=== PATIENT | female | born 1940 | race Hispanic/Latino ===

== ENCOUNTER 2017-08-01 11:02 | Inpatient (IN) | payer MEDICARE, BC ==
[2017-08-01 12:29] LABS: BASO % 0.6 % (0.0-2.0); EOS % 0.4 % (0.0-4.0); HEMOGLOBIN 14.5 g/dL (11.0-16.0); LYMPH # 1.6 K/uL (1.0-4.3); LYMPH % 29.2 % (20.0-40.0); MEAN CELL VOLUME 80.2 fL (81.0-99.0); MEAN CORPUSCULAR HEMOGLOBIN 26.2 pg (27.0-31.0); MEAN CORPUSCULAR HGB CONC 32.7 g/dL (33.0-37.0); MEAN PLATELET VOLUME 8.7 fL (7.2-11.7); MONO # 0.6 K/uL (0.0-0.8); MONO % 11.6 % (0.0-10.0); NEUT # 3.1 K/uL (1.8-7.0); NEUT % 58.2 % (50.0-75.0); RBC 5.53 Mil/uL (3.80-5.20); RED CELL DISTRIBUTION WIDTH 18.9 % (11.5-14.5); WHITE BLOOD COUNT 5.4 K/uL (4.8-10.8)
[2017-08-01 12:33] LABS: SQUAMOUS EPITHIAL < 1 /hpf (0-5); URINE BILIRUBIN NEGATIVE (NEGATIVE); URINE BLOOD NEGATIVE (NEGATIVE); URINE CLARITY Clear (Clear); URINE COLOR Straw (YELLOW); URINE GLUCOSE (UA) NORMAL (Normal); URINE LEUKOCYTE ESTERASE NEG Leu/uL (Negative); URINE NITRATE NEGATIVE (NEGATIVE); URINE PROTEIN NEGATIVE (NEGATIVE); URINE UROBILINOGEN NORMAL mg/dL (0.2-1.0)
--- NOTE | 2017-08-01 12:38 | RAD ---
PROCEDURE: CHEST RADIOGRAPH, 1 VIEW HISTORY: chest pain COMPARISON: None available. FINDINGS: LUNGS: Left mid lung zone calcified pleural plaque and right hemidiaphragmatic calcified pleural plaque Smaller opacities in mid right lung zone probably relate to the same calcified pleural plaque pathology PLEURA: No pneumothorax or pleural fluid seen. Calcified pleural plaques CARDIOVASCULAR: Normal heart size. Midline sternotomy changes OSSEOUS STRUCTURES: Orthopedic fixation of prior inferred old comminuted fracture proximal right humerus VISUALIZED UPPER ABDOMEN: Normal. OTHER FINDINGS: None. IMPRESSION: Calcified pleural plaques -prior asbestosis exposure inferred Postop changes
[2017-08-01 12:50] LABS: ALB/GLOB RATIO 1.3 (1.0-2.1); ALT/SGPT 22 U/L (9-52); AST/SGOT 35 U/L (14-36); BLOOD UREA NITROGEN 8 mg/dL (7-17); CALCIUM 8.6 mg/dl (8.6-10.4); GFR AFRICAN-AMERICAN > 60; GFR NON-AFRICAN AMERICAN > 60
[2017-08-01 13:02] LABS: B-TYPE NATRIURETIC PEPTIDE 323 pg/mL (0-900)
--- NOTE | 2017-08-01 13:38 | C.PDOC ---
History Of Present Illness 76 y/o female, with hx of CAD, presents to the ER complaining of left-sided arm pain which radiated to the chest with associated SOB. She gets this intermittently since the patient had a triple bypass 1 year ago. Patient states that the pain is worse today. The pain is intermittent and radiates to the chest. Patient denies any associated dizziness, nausea, and vomiting. Patient has another complaint, urinary incontinence. Patient states that she tries to go to the bathroom and she can't make it on time. This has been occurring for the past few weeks. Patient denies any abdominal pain,flank pain, back pain, nausea, vomiting, diarrhea, fever, and chills. Time Seen by Provider: 08/01/17 11:57 Chief Complaint (Nursing): Chest Pain History Per: Patient History/Exam Limitations: no limitations Onset/Duration Of Symptoms: Days Current Symptoms Are (Timing): Still Present Severity: Moderate Past Medical History Reviewed: Historical Data, Nursing Documentation, Vital Signs Vital Signs: Last Vital Signs Temp 98.6 F 08/01/17 11:10 Pulse 96 H 08/01/17 14:32 Resp 19 08/01/17 14:32 BP 145/61 08/01/17 14:50 Pulse Ox 96 08/01/17 15:26 - Medical History PMH: Anemia, HTN Surgical History: CABG Family History: States: No Known Family Hx - Social History Hx Alcohol Use: No Hx Substance Use: No - Immunization History Hx Influenza Vaccination: No Hx Pneumococcal Vaccination: No Review Of Systems Except As Marked, All Systems Reviewed And Found Negative. Constitutional: Negative for: Fever, Chills Respiratory: Positive for: Shortness of Breath Gastrointestinal: Negative for: Nausea, Vomiting, Abdominal Pain, Diarrhea Genitourinary: Positive for: Incontinence Musculoskeletal: Positive for: Arm Pain (left arm) Neurological: Negative for: Weakness, Numbness Physical Exam - Physical Exam Appears: Non-toxic, No Acute Distress, Other (awake, alert, cooperative) Skin: Normal Color, Warm Head: Atraumatic, Normacephalic Eye(s): bilateral: Normal Inspection, PERRL Nose: Normal Oral Mucosa: Moist Neck: Supple Chest: Symmetrical, Other (mid-line scar on chest) Cardiovascular: Rhythm Regular Respiratory: Normal Breath Sounds, No Accessory Muscle Use, No Rales, No Rhonchi , No Wheezing Gastrointestinal/Abdominal: Normal Exam Back: Normal Inspection, No CVA Tenderness Extremity: Normal ROM Neurological/Psych: Oriented x3, Normal Speech, Normal Cognition, Normal Motor, Normal Sensation ED Course And Treatment - Laboratory Results Result Diagrams: 08/01/17 12:20 08/01/17 12:20 ECG Rhythm: Sinus Rhythm Interpretation Of ECG: no ST elevations/depressions, occasional PACS Rate From EC O2 Sat by Pulse Oximetry: 96 (RA) Pulse Ox Interpretation: Normal - Other Rad No standard instances X-Ray: Viewed By Me, Read By Radiologist Interpretation: PROCEDURE: CHEST RADIOGRAPH, 1 VIEW. HISTORY: chest pain. COMPARISON: None available. FINDINGS: LUNGS: Left mid lung zone calcified pleural plaque and right hemidiaphragmatic calcified pleural plaque. Smaller opacities in mid right lung zone probably relate to the same calcified pleural plaque pathology. PLEURA: No pneumothorax or pleural fluid seen. Calcified pleural plaques. CARDIOVASCULAR: Normal heart size. Midline sternotomy changes. OSSEOUS STRUCTURES: Orthopedic fixation of prior inferred old comminuted fracture proximal right humerus. VISUALIZED UPPER ABDOMEN: Normal. OTHER FINDINGS: None. IMPRESSION: Calcified pleural plaques -prior asbestosis exposure inferred. Postop changes Medical Decision Making Medical Decision Making: Plan: --CXR --EKG --Labs --Urinalysis Daughter presented to ED, very anxious and mildly agitated. States her mother has a valvular disorder and needs to f/u with cardiology but does not go. Patient r/o ACS, spoke to medicine fiberglass insulation installer, will put consult for Dr. Mosqueda, cardiology fiberglass insulation installer. Disposition Discussed With : Luanne Kiser Counseled Patient/Family Regarding: Studies Performed - Disposition Disposition Time: 14:30 Condition: GUARDED - Clinical Impression Clinical Impression: Unstable angina - Scribe Statement The provider has reviewed the documentation as recorded by the Scribe Kasie Freire Provider Attestation: All medical record entries made by the Scribe were at my direction and personally dictated by me. I have reviewed the chart and agree that the record accurately reflects my personal performance of the history, physical exam, medical decision making, and the department course for this patient. I have also personally directed, reviewed, and agree with the discharge instructions and disposition. Decision To Admit - Pt Status Changed To: Hospital Disposition Of: Inpatient - Admit Certification Admit to Inpatient:: After my assessment, the patient will require hospitalization for at least two midnights. This is because of the severity of symptoms shown, intensity of services needed, and/or the medical risk in this patient being treated as an outpatient. - InPatient: Physician Admission Certification: I certify that this patient requires 2 or more midnights of care for the following reason:: comp[licated chest pain - . Bed Request Type: Telemetry Admitting Physician: Luanne Kiser Patient Diagnosis: Unstable angina
[2017-08-01 23:13] LABS: CK-MB 1.52 ng/mL (0.0-3.38)
--- NOTE | 2017-08-01 23:25 | CP.PCM.CON ---
History of Present Illness - History of Present Illness History of Present Illness: 76 F with hx of CAD s/p CABG admitted for chest pain Trop x 1 negative Patient was told she has some valvular problem and concerned Will check ECHO Continue Trop monitoring 76 year old female with past medical history of CAD s/p triple bypass, LE DVT on Eliquis, anxiety presented for chest pain x 2 days. Patient states that pain began 2 days ago when she was bending forward. The pain returned the next day when she woke in the morning. Patient states she occasionally gets chest pain after she had her bypass surgery 3 years ago. Pain was located in substernal region and felt like a tightness. Denies radiation of pain. Denies having any N/V/D/C, abd pain, SOB, F/C, cough. Patient complains left LE swelling and pain occasionally after her bypass. PMHx: stated above Sx: cardiac triple bypass, LE vein removal Social: current tobacco use, denies ETOH or drug use Med: see MAR Allergies: penicillin Physical Examination - Constitutional Appears: Non-toxic, No Acute Distress - Head Exam Head Exam: ATRAUMATIC - ENT Exam ENT Exam: Mucous Membranes Moist - Respiratory Exam Respiratory Exam: Clear to Ausculation Bilateral. absent: Accessory Muscle Use , Rhonchi, Wheezes, Respiratory Distress - Cardiovascular Exam Cardiovascular Exam: REGULAR RHYTHM, +S1, +S2. absent: Gallop, Rubs, Murmur - GI/Abdominal Exam GI & Abdominal Exam: Soft, Normal Bowel Sounds. absent: Distended, Firm, Guarding, Rigid, Tenderness - Extremities Exam Extremities Exam: Pedal Edema. absent: Calf Tenderness - Neurological Exam Neurological Exam: Alert, Awake, Oriented x3 - Psychiatric Exam Psychiatric exam: Normal Affect, Normal Mood - Skin Skin Exam: Dry, Intact, Normal Color, Warm Past Patient History - Past Medical History & Family History Past Medical History?: Yes - Past Social History Smoking Status: Light Smoker < 10 Cigarettes Daily - CARDIAC Hx Cardiac Disorders: Yes Hx Angina: Yes Hx Hypertension: Yes - PULMONARY Hx Respiratory Disorders: No - NEUROLOGICAL Hx Neurological Disorder: Yes Hx Vertigo: Yes - HEENT Hx HEENT Problems: Yes Other/Comment: USES GLASSES for poor vision - RENAL Hx Chronic Kidney Disease: No - ENDOCRINE/METABOLIC Hx Endocrine Disorders: No - HEMATOLOGICAL/ONCOLOGICAL Hx Blood Disorders: Yes Hx Anemia: Yes - INTEGUMENTARY Hx Dermatological Problems: No - MUSCULOSKELETAL/RHEUMATOLOGICAL Hx Falls: Yes - GASTROINTESTINAL Hx Gastrointestinal Disorders: Yes Hx Gastroesophageal Reflux: Yes - GENITOURINARY/GYNECOLOGICAL Hx Genitourinary Disorders: Yes Hx Incontinence: Yes (urgency) - PSYCHIATRIC Hx Substance Use: No - SURGICAL HISTORY Hx Surgeries: Yes Hx Coronary Artery Bypass Graft: Yes Hx Orthopedic Surgery: Yes (rt shoulder) Other/Comment: hernia repair -abdomen - ANESTHESIA Hx Anesthesia: Yes Hx Anesthesia Reactions: No Meds Home Medications: Home Medication List Medication Instructions Recorded Confirmed Type Lisinopril [Zestril] 2.5 mg PO DAILY #30 tab 08/04/17 Rx Rosuvastatin Calcium 2.5 [Crestor] 2.5 mg PO HS #30 tab 08/04/17 Rx Allergies/Adverse Reactions: Allergies Allergy/AdvReac Type Severity Reaction Status Date / Time Penicillins Allergy Verified 08/01/17 11:11 - Medications Medications: Current Medications Apixaban (Eliquis) 5 mg PO BID [facility] Digoxin (Lanoxin) 0.125 mg PO DAILY [facility] Diltiazem HCl (Cardizem Cd) 180 mg PO DAILY [facility] Duloxetine HCl (Cymbalta) 60 mg PO DAILY [facility] Ferrous Sulfate (Feosol) 325 mg PO DAILY [facility] Isosorbide Mononitrate (Imdur Er) 30 mg PO DAILY [facility] Meclizine HCl (Antivert) 12.5 mg PO DAILY [facility] Mirtazapine (Remeron) 7.5 mg PO HS [facility] Last Admin: 08/01/17 22:54 Dose: 7.5 mg Mometasone Furoate (Asmanex Twisthaler 220 Mcg) 1 puff INH RBID [facility] Pantoprazole Sodium (Protonix Ec Tab) 40 mg PO DAILY [facility] Pneumococcal Polyvalent Vaccine (Pneumovax 23 Vaccine) 0.5 ml IM .ONCE ONE Stop: 08/03/17 10:01 Results - Vital Signs Recent Vital Signs: Last Vital Signs Temp 98.1 F 08/01/17 18:34 Pulse 81 08/01/17 18:34 Resp 20 08/01/17 18:34 BP 151/64 H 08/01/17 18:34 Pulse Ox 99 08/01/17 18:34 - Labs Result Diagrams: 08/04/17 06:23 08/04/17 06:23 Labs: Laboratory Results - last 24 hr 08/01/17 08/01/1708/01/18 12:20 12:20 12:20 WBC 5.4 RBC 5.53 H Hgb 14.5 Hct 44.4 MCV 80.2 L MCH 26.2 L MCHC 32.7 L RDW 18.9 H Plt Count 272 MPV 8.7 Neut % (Auto) 58.2 Lymph % (Auto) 29.2 [place] % (Auto) 11.6 H Eos % (Auto) 0.4 Baso % (Auto) 0.6 Neut # 3.1 Lymph # 1.6 [place] # 0.6 Eos # 0.0 Baso # 0.0 Sodium 129 L Potassium 4.0 Chloride 93 L Carbon Dioxide 30 Anion Gap 10 BUN 8 Creatinine 0.5 L Est GFR ( Amer) > 60 Est GFR (Non-Af Amer) > 60 Random Glucose 79 Calcium 8.6 Total Bilirubin 0.3 AST 35 ALT 22 Alkaline Phosphatase 144 H Total Creatine Kinase CK-MB (Mass) Troponin I < 0.0120 NT-Pro-B Natriuret Pep 323 Total Protein 7.2 Albumin 4.0 Globulin 3.2 Albumin/Globulin Ratio 1.3 Urine Color Straw Urine Clarity Clear Urine pH 7.0 Ur Specific [place] 1.004 Urine Protein Negative Urine Glucose (UA) Normal Urine Ketones Negative Urine Blood Negative Urine Nitrate Negative Urine Bilirubin Negative Urine Urobilinogen Normal Ur Leukocyte Esterase Neg Urine RBC (Auto) < 1 Ur Squamous Epith Cells < 1 Digoxin 08/01/17 08/01/17 12:36 22:46 WBC RBC Hgb Hct MCV MCH MCHC RDW Plt Count MPV Neut % (Auto) Lymph % (Auto) [place] % (Auto) Eos % (Auto) Baso % (Auto) Neut # Lymph # [place] # Eos # Baso # Sodium Potassium Chloride Carbon Dioxide Anion Gap BUN Creatinine Est GFR ( Amer) Est GFR (Non-Af Amer) Random Glucose Calcium Total Bilirubin AST ALT Alkaline Phosphatase Total Creatine Kinase 89 CK-MB (Mass) 1.52 Troponin I < 0.0120 NT-Pro-B Natriuret Pep Total Protein Albumin Globulin Albumin/Globulin Ratio Urine Color Urine Clarity Urine pH Ur Specific [place] Urine Protein Urine Glucose (UA) Urine Ketones Urine Blood Urine Nitrate Urine Bilirubin Urine Urobilinogen Ur Leukocyte Esterase Urine RBC (Auto) Ur Squamous Epith Cells Digoxin 1.2 Assessment & Plan - Assessment and Plan (Free Text) Assessment: Assessment and Plan - Assessment and Plan (Free Text) Assessment: 76 year old female with past medical history of CAD s/p CABG is admitted for chest pain rule out ACS Chest pain troponin x 3 were negative EKG showed NSR HR of 80 with occasional PAC. will repeat EKG Echo ordered Will consider starting Aspirin on pt Continue Digoxin, Cardizem, Indur Will check HgbA1c and lipid pain and TSH Pt will need to be started on ACEI and statin Lightheadedness Will check carotid US Continue home medication Antivert LE DVT Will check carotid US Continue home med Eliquis hyponatremia Will start NS 75 cc will check urine osmolarity and urine lytes Prophylaxis Pepcid Continue Eliquis. Stopped SCDs until DVT
[2017-08-02 08:07] LABS: CK-MB 1.26 ng/mL (0.0-3.38)
[2017-08-02] MEDS: diltiaZEM 180 mg/24 Hours CD Cap PO SCH (09:33)
[2017-08-02] MEDS: Pantoprazole 40 mg EC Tab PO SCH (09:33)
[2017-08-02] MEDS ORDERED: Digoxin 125 mcg (0.125 mg) Tab PO SCH (10:00)
[2017-08-02] MEDS ORDERED: Mometasone 220 mcg/puff-14 puff Inh INH SCH (10:00)
[2017-08-02 10:01] LABS: OSMOLALITY,URINE 303 mosm/kg (300-1000)
--- NOTE | 2017-08-02 11:06 | CP.PCM.PN ---
Subjective - Date & Time of Evaluation Date of Evaluation: 08/02/17 Time of Evaluation: 11:04 - Subjective Subjective: PGY2 progress note for Dr. Kiser 76 year old female with past medical history of CAD s/p triple bypass, LE DVT on Eliquis, anxiety presented for chest pain x 2 days. Patient states that pain began 2 days ago when she was bending forward. The pain returned the next day when she woke in the morning. Patient states she occasionally gets chest pain after she had her bypass surgery 3 years ago. Pain was located in substernal region and felt like a tightness. Denies radiation of pain. Denies having any N/V/D/C, abd pain, SOB, F/C, cough. Patient complains left LE swelling and pain occasionally after her bypass. PMHx: stated above Sx: cardiac triple bypass, LE vein removal Social: current tobacco use, denies ETOH or drug use Med: see MAR Allergies: penicillin Objective - Vital Signs/Intake and Output Vital Signs (last 24 hours): Temp Pulse Resp BP Pulse Ox 98.1 F 86 20 130/69 97 08/02/17 07:50 08/02/17 07:50 08/02/17 07:50 08/02/17 07:50 08/02/17 07:50 - Medications Medications: Current Medications Apixaban (Eliquis) 5 mg PO BID [facility] Last Admin: 08/02/17 09:33 Dose: 5 mg Digoxin (Lanoxin) 0.125 mg PO DAILY [facility] Last Admin: 08/02/17 09:34 Dose: 0.125 mg Diltiazem HCl (Cardizem Cd) 180 mg PO DAILY [facility] Last Admin: 08/02/17 09:33 Dose: 180 mg Duloxetine HCl (Cymbalta) 60 mg PO DAILY [facility] Last Admin: 08/02/17 09:32 Dose: 60 mg Ferrous Sulfate (Feosol) 325 mg PO DAILY [facility] Last Admin: 08/02/17 09:33 Dose: 325 mg Isosorbide Mononitrate (Imdur Er) 30 mg PO DAILY [facility] Last Admin: 08/02/17 09:33 Dose: 30 mg Meclizine HCl (Antivert) 12.5 mg PO DAILY [facility] Last Admin: 08/02/17 09:33 Dose: 12.5 mg Mirtazapine (Remeron) 7.5 mg PO HS [facility] Last Admin: 08/01/17 22:54 Dose: 7.5 mg Mometasone Furoate (Asmanex Twisthaler 220 Mcg) 1 puff INH RBID [facility] Pantoprazole Sodium (Protonix Ec Tab) 40 mg PO DAILY [facility] Last Admin: 08/02/17 09:33 Dose: 40 mg Pneumococcal Polyvalent Vaccine (Pneumovax 23 Vaccine) 0.5 ml IM .ONCE ONE Stop: 08/03/17 10:01 - Labs Labs: 08/01/17 12:20 08/01/17 12:20 - Constitutional Appears: Non-toxic, No Acute Distress - Head Exam Head Exam: ATRAUMATIC - ENT Exam ENT Exam: Mucous Membranes Moist - Respiratory Exam Respiratory Exam: Clear to Ausculation Bilateral. absent: Accessory Muscle Use , Rhonchi, Wheezes, Respiratory Distress - Cardiovascular Exam Cardiovascular Exam: REGULAR RHYTHM, +S1, +S2. absent: Gallop, Rubs, Murmur - GI/Abdominal Exam GI & Abdominal Exam: Soft, Normal Bowel Sounds. absent: Distended, Firm, Guarding, Rigid, Tenderness - Extremities Exam Extremities Exam: Pedal Edema. absent: Calf Tenderness - Neurological Exam Neurological Exam: Alert, Awake, Oriented x3 - Psychiatric Exam Psychiatric exam: Normal Affect, Normal Mood - Skin Skin Exam: Dry, Intact, Normal Color, Warm Assessment and Plan - Assessment and Plan (Free Text) Assessment: 76 year old female with past medical history of CAD s/p CABG is admitted for chest pain rule out ACS Chest pain troponin x 3 were negative EKG showed NSR HR of 80 with occasional PAC. will repeat EKG Echo ordered Will consider starting Aspirin on pt Continue Digoxin, Cardizem, Indur Will check HgbA1c and lipid pain and TSH Pt will need to be started on ACEI and statin Lightheadedness Will check carotid US Continue home medication Antivert LE DVT Will check carotid US Continue home med Eliquis hyponatremia Will start NS 75 cc will check urine osmolarity and urine lytes Prophylaxis Pepcid Continue Eliquis. Stopped SCDs until DVT All rec and management per Dr. Kiser
[2017-08-02 11:53] LABS: HEMOGLOBIN 12.7 g/dL (11.0-16.0); MEAN CELL VOLUME 79.8 fL (81.0-99.0); MEAN CORPUSCULAR HGB CONC 32.6 g/dL (33.0-37.0); MEAN PLATELET VOLUME 8.6 fL (7.2-11.7); RBC 4.88 Mil/uL (3.80-5.20); RED CELL DISTRIBUTION WIDTH 18.8 % (11.5-14.5); WHITE BLOOD COUNT 6.2 K/uL (4.8-10.8)
[2017-08-02 12:14] LABS: BLOOD UREA NITROGEN 13 mg/dL (7-17); CALCIUM 8.3 mg/dl (8.6-10.4); GFR AFRICAN-AMERICAN > 60; GFR NON-AFRICAN AMERICAN > 60
--- NOTE | 2017-08-02 12:24 | CP.PCM.PN ---
<Roge Turner - Last Filed: 08/02/17 12:21> Subjective - Date & Time of Evaluation Date of Evaluation: 08/02/17 Time of Evaluation: 11:00 - Subjective Subjective: PGY-[address] Mosqueda. No acute events noted overnight. Patient complained of left leg swelling and pain which is more frequent after her bypass 3 years ago. Today she did not complain of chest pain or palpitations, although she states she occasionally gets chest tightness after her bypass. She was seen walking without dyspnea. Objective - Vital Signs/Intake and Output Vital Signs (last 24 hours): Temp Pulse Resp BP Pulse Ox 98.1 F 86 20 130/69 97 08/02/17 07:50 08/02/17 07:50 08/02/17 07:50 08/02/17 07:50 08/02/17 07:50 - Medications Medications: Current Medications Alprazolam (Xanax) 0.5 mg PO ONCE PRN PRN Reason: Anxiety Last Admin: 08/02/17 12:16 Dose: 0.5 mg Apixaban (Eliquis) 5 mg PO BID [facility] Last Admin: 08/02/17 09:33 Dose: 5 mg Digoxin (Lanoxin) 0.125 mg PO DAILY [facility] Last Admin: 08/02/17 09:34 Dose: 0.125 mg Diltiazem HCl (Cardizem Cd) 180 mg PO DAILY [facility] Last Admin: 08/02/17 09:33 Dose: 180 mg Duloxetine HCl (Cymbalta) 60 mg PO DAILY [facility] Last Admin: 08/02/17 09:32 Dose: 60 mg Famotidine (Pepcid) 20 mg PO DAILY [facility] Last Admin: 08/02/17 12:15 Dose: 20 mg Ferrous Sulfate (Feosol) 325 mg PO DAILY [facility] Last Admin: 08/02/17 09:33 Dose: 325 mg Isosorbide Mononitrate (Imdur Er) 30 mg PO DAILY [facility] Last Admin: 08/02/17 09:33 Dose: 30 mg Meclizine HCl (Antivert) 12.5 mg PO DAILY [facility] Last Admin: 08/02/17 09:33 Dose: 12.5 mg Mirtazapine (Remeron) 7.5 mg PO HS [facility] Last Admin: 08/01/17 22:54 Dose: 7.5 mg Mometasone Furoate (Asmanex Twisthaler 220 Mcg) 1 puff INH RBID [facility] Pantoprazole Sodium (Protonix Ec Tab) 40 mg PO DAILY [facility] Last Admin: 08/02/17 09:33 Dose: 40 mg Pneumococcal Polyvalent Vaccine (Pneumovax 23 Vaccine) 0.5 ml IM .ONCE ONE Stop: 08/03/17 10:01 - Labs Labs: 08/02/17 11:41 08/02/17 11:41 - Additional Findings Additional findings: - Constitutional Appears: Non-toxic, No Acute Distress - Head Exam Head Exam: ATRAUMATIC - ENT Exam ENT Exam: Mucous Membranes Moist - Respiratory Exam Respiratory Exam: Clear to Ausculation Bilateral. absent: Accessory Muscle Use , Rhonchi, Wheezes, Respiratory Distress - Cardiovascular Exam Cardiovascular Exam: REGULAR RHYTHM, +S1, +S2. absent: Gallop, Rubs, Murmur - GI/Abdominal Exam GI & Abdominal Exam: Soft, Normal Bowel Sounds. absent: Distended, Firm, Guarding, Rigid, Tenderness - Extremities Exam Extremities Exam: Pedal Edema. absent: Calf Tenderness - Neurological Exam Neurological Exam: Alert, Awake, Oriented x3 - Psychiatric Exam Psychiatric exam: Normal Affect, Normal Mood - Skin Skin Exam: Dry, Intact, Normal Color, Warm Assessment and Plan (1) Chest pain Assessment & Plan: s/p triple bypass 2014 troponin x 3 were negative Pro-bnp NORMAL EKG on admission showed NSR HR of 80 with occasional PAC F/U ECHO report On telemetry monitoring Continue current medical management Status: Acute <PandaRenzo - Last Filed: 08/02/17 20:54> Subjective - Subjective Subjective: Patient seen and personally evaluated by me. 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 Will schedule for MIGUELITO for definitive diagnosis Objective - Vital Signs/Intake and Output Vital Signs (last 24 hours): Temp Pulse Resp BP Pulse Ox 98.9 F 68 20 139/60 100 08/02/17 15:45 08/02/17 19:55 08/02/17 15:45 08/02/17 15:45 08/02/17 15:45 - Medications Medications: Current Medications Albuterol Sulfate (Albuterol 0.083% Inhal [place] (2.5 Mg/3 Ml) Ud) 2.5 mg INH RQ8 [facility] Last Admin: 08/02/17 19:53 Dose: 2.5 mg Alprazolam (Xanax) 0.5 mg PO ONCE PRN PRN Reason: Anxiety Last Admin: 08/02/17 12:16 Dose: 0.5 mg Alprazolam (Xanax) 1 mg PO BID [facility] Last Admin: 08/02/17 19:11 Dose: 1 mg Apixaban (Eliquis) 5 mg PO BID [facility] Last Admin: 08/02/17 17:18 Dose: 5 mg Digoxin (Lanoxin) 0.125 mg PO DAILY [facility] Last Admin: 08/02/17 09:34 Dose: 0.125 mg Diltiazem HCl (Cardizem Cd) 180 mg PO DAILY [facility] Last Admin: 08/02/17 09:33 Dose: 180 mg Duloxetine HCl (Cymbalta) 60 mg PO DAILY [facility] Last Admin: 08/02/17 09:32 Dose: 60 mg Famotidine (Pepcid) 20 mg PO DAILY [facility] Last Admin: 08/02/17 12:15 Dose: 20 mg Ferrous Sulfate (Feosol) 325 mg PO DAILY [facility] Last Admin: 08/02/17 09:33 Dose: 325 mg Sodium Chloride (Sodium Chloride 0.9%) 1,000 mls @ 75 mls/hr IV .[id number] [facility] Last Admin: 08/02/17 14:57 Dose: 75 mls/hr Isosorbide Mononitrate (Imdur Er) 30 mg PO DAILY [facility] Last Admin: 08/02/17 09:33 Dose: 30 mg Meclizine HCl (Antivert) 12.5 mg PO DAILY [facility] Last Admin: 08/02/17 09:33 Dose: 12.5 mg Metoclopramide HCl (Reglan) 10 mg PO Q8H PRN PRN Reason: Nausea/Vomiting Mirtazapine (Remeron) 7.5 mg PO HS [facility] Last Admin: 08/01/17 22:54 Dose: 7.5 mg Mometasone Furoate (Asmanex Twisthaler 220 Mcg) 1 puff INH RBID [facility] Nicotine (Nicoderm Cq) 1 patch TD DAILY [facility] Last Admin: 08/02/17 19:11 Dose: 1 patch Pantoprazole Sodium (Protonix Ec Tab) 40 mg PO DAILY [facility] Last Admin: 08/02/17 09:33 Dose: 40 mg Pneumococcal Polyvalent Vaccine (Pneumovax 23 Vaccine) 0.5 ml IM .ONCE ONE Stop: 08/03/17 10:01 - Labs Labs: 08/02/17 11:41 08/02/17 11:41
[2017-08-02 13:17] LABS: HDL CHOLESTEROL 58 mg/dL (30-70)
[2017-08-02 13:28] LABS: LDL CHOLESTEROL 60 mg/dL (0-129)
--- NOTE | 2017-08-02 14:42 | VASCLAB ---
PROCEDURE: Lower Extremity Venous Duplex Exam. HISTORY: Left leg swelling, r/o dvt PRIORS: None. TECHNIQUE: Bilateral common femoral, femoral, popliteal and posterior tibial, peroneal and great saphenous veins were evaluated. Flow was assessed with color Doppler, compressibility, assessment of phasic flow and augmentation response. Report prepared by Deniz Dahl, DYAO, RVT FINDINGS: RIGHT: 1. Common Femoral Vein: 1.1. Compressibility - Fully compressible: Thrombus - None : Flow - Phasic: Augmentation -Normal: Reflux - None. 2. Femoral Vein: 2.1. Compressibility - Fully compressible: Thrombus - None : Flow - Phasic: Augmentation -Normal: Reflux - Severe. 3. Popliteal Vein: 3.1. Compressibility - Fully compressible: Thrombus - None : Flow - Phasic: Augmentation -Normal: Reflux - Severe. 4. Posterior Tibial Vein: 4.1. Compressibility - Fully compressible: Thrombus - None: Flow - Phasic: Augmentation -Normal: Reflux - None. 5. Peroneal Vein: 5.1. Compressibility - Fully compressible: Thrombus - None: Flow - Phasic: Augmentation -Normal: Reflux - Severe. 6. Great Saphenous Vein: 6.1. Compressibility - Fully compressible: Thrombus - None: Flow - Phasic: Augmentation - Normal: Reflux - None. LEFT: 1. Common Femoral Vein: 1.1. Compressibility - Fully compressible: Thrombus - None: Flow - Phasic: Augmentation -Normal: Reflux - None. 2. Femoral Vein: 2.1. Compressibility - Fully compressible: Thrombus - None: Flow - Phasic: Augmentation -Normal: Reflux - Severe. 3. Popliteal Vein: 3.1. Compressibility - Fully compressible: Thrombus - None : Flow - Phasic: Augmentation -Normal: Reflux - Severe. 4. Posterior Tibial Vein: 4.1. Compressibility - Fully compressible: Thrombus - None: Flow - Phasic: Augmentation -Normal: Reflux - None. 5. Peroneal Vein: 5.1. Compressibility - Fully compressible: Thrombus - None: Flow - Phasic: Augmentation -Normal: Reflux - Severe. 6. Great Saphenous Vein: 6.1. Compressibility - Fully compressible: Thrombus - None: Flow - Phasic: Augmentation - Normal: Reflux - None. OTHER FINDINGS: Right: None significant. Left: None significant. IMPRESSION: Right: No evidence of deep or superficial vein thrombosis of the right lower extremity. Severe valvular incompetence of the right femoral, popliteal and peroneal veins. Left: No evidence of deep or superficial vein thrombosis of the left lower extremity. Severe valvular incompetence of the left femoral, popliteal and peroneal veins.
--- NOTE | 2017-08-02 14:47 | VASCLAB ---
PROCEDURE: HISTORY: Dizziness COMPARISON: None available. TECHNIQUE: Grayscale and duplex Doppler evaluation of the cervical carotid and vertebral arteries were performed. The common carotid, carotid bifurcations and cervical Internal Carotid Artery (ICA) and proximal External Carotid Artery (ECA) were evaluated. The vertebral arteries were evaluated for gross patency and flow direction. Report prepared by Deniz Dahl, BS, RVT FINDINGS: RIGHT CAROTID ARTERIES: 1. Common Carotid Artery: No significant focal plaque formation of the right common carotid artery. Maximum Peak Systolic velocity: 102 cm/sec: End-diastolic velocity 13 cm/sec. 2. Carotid Bifurcation: Calcific plaque formation. Maximum Peak Systolic velocity: cm/sec: End-diastolic velocity cm/sec. 3. Internal Carotid Artery: Severe plaque formation of the right proximal ICA which does not results in a hemodynamically significant stenosis. Plaque description: calcific 3.1. Proximal Segment: Peak systolic velocity 85 cm/sec: End-diastolic velocity 10 cm/sec - % stenosis 0-15% 3.2. Middle Segment: Peak systolic velocity 123 cm/sec: End-diastolic velocity 12 cm/sec - % stenosis 0-15% 3.3. Distal Segment: Peak systolic velocity 97 cm/sec: End-diastolic velocity 9 cm/sec - % stenosis 0-15% 4. External Carotid Artery: No significant focal plaque formation. Peak systolic velocity 204 cm/sec 5. ICA/CCA Ratio: 1.3 LEFT CAROTID ARTERIES: 1. Common Carotid Artery: No significant focal plaque formation of the left common carotid artery. Maximum Peak Systolic velocity: 117 cm/sec: End-diastolic velocity 0 cm/sec. 2. Carotid Bifurcation: Calcific plaque formation. Maximum Peak Systolic velocity: 77 cm/sec: End-diastolic velocity 0 cm/sec. 3. Internal Carotid Artery: Severe plaque formation of the left proximal ICA which does not results in a hemodynamically significant stenosis. Plaque description: calcific 3.1. Proximal Segment: Peak systolic velocity 125 cm/sec: End-diastolic velocity 11 cm/sec - % stenosis 0-15% 3.2. Middle Segment: Peak systolic velocity 115 cm/sec: End-diastolic velocity 11 cm/sec - % stenosis 0-15% 3.3. Distal Segment: Peak systolic velocity 97 cm/sec: End-diastolic velocity 9 cm/sec - % stenosis 0-15% 4. External Carotid Artery: No significant focal plaque formation. Peak systolic velocity 162 cm/sec 5. ICA/CCA Ratio: 1.3 VERTEBRAL ARTERIES: 1. Right Vertebral Artery: The right vertebral artery flow direction is antegrade. 2. Left Vertebral Artery: The left vertebral artery flow direction is antegrade. OTHER FINDINGS: 1. Right Brachial Blood pressure: 140 mmHg. 2. Left Brachial Blood pressure: 144 mmHg. IMPRESSION: RIGHT: Duplex scan does not suggest hemodynamically significant stenosis of the right extracranial carotid arteries. LEFT: Duplex scan does not suggest hemodynamically significant stenosis of the left extracranial carotid arteries.
[2017-08-02] MEDS: Sodium Chloride 0.9% 1,000 ML IV SCH (14:57)
[2017-08-02] MEDS: Albuterol 0.083% Inhal Sol (2.5 mg/3 mL) UD INH SCH ×2 (19:53→23:49)
[2017-08-02 22:49] LABS: INR 1.2; PROTHROMBIN TIME 13.3 SECONDS (9.7-12.2)
[2017-08-02 23:12] LABS: FREE T4 1.01 ng/dL (0.78-2.19)
--- NOTE | 2017-08-03 01:55 | HP ---
HISTORY OF PRESENT ILLNESS: This 76-year-old female admitted to the hospital with fatigue, dyspnea.. PHYSICAL EXAMINATION: GENERAL: The patient is awake, alert, oriented. VITAL SIGNS: Temperature , pulse 90. HEENT: Within normal limits. NECK: Supple. CHEST: Symmetrical. HEART: Regular. ABDOMEN: Soft. EXTREMITIES: No edema. IMPRESSION: syndrome. PLAN: Patient to get bedrest, supportive care. Luanne Kiser MD
[2017-08-03] MEDS: Sodium Chloride 0.9% 1,000 ML IV SCH ×2 (03:20→07:11)
[2017-08-03] MEDS: Albuterol 0.083% Inhal Sol (2.5 mg/3 mL) UD INH SCH ×3 (07:46→23:50)
[2017-08-03 08:48] LABS: BASO # 0.1 K/uL (0.0-0.2); BASO % 1.2 % (0.0-2.0); EOS # 0.1 K/uL (0.0-0.7); EOS % 1.1 % (0.0-4.0); HEMOGLOBIN 13.2 g/dL (11.0-16.0); LYMPH # 2.8 K/uL (1.0-4.3); LYMPH % 48.6 % (20.0-40.0); MEAN CORPUSCULAR HEMOGLOBIN 26.4 pg (27.0-31.0); MEAN PLATELET VOLUME 8.5 fL (7.2-11.7); MONO # 0.6 K/uL (0.0-0.8); MONO % 10.7 % (0.0-10.0); NEUT # 2.2 K/uL (1.8-7.0); NEUT % 38.4 % (50.0-75.0); NRBC % 0.1 % (0.0-2.0); RBC 4.99 Mil/uL (3.80-5.20); WHITE BLOOD COUNT 5.9 K/uL (4.8-10.8)
[2017-08-03 09:14] LABS: ALB/GLOB RATIO 1.2 (1.0-2.1); ALBUMIN 3.8 g/dL (3.5-5.0); ALT/SGPT 18 U/L (9-52); AST/SGOT 36 U/L (14-36); BLOOD UREA NITROGEN 7 mg/dL (7-17); CALCIUM 8.9 mg/dl (8.6-10.4); GFR AFRICAN-AMERICAN > 60; GFR NON-AFRICAN AMERICAN > 60
[2017-08-03] MEDS ORDERED: Pneumococcal 23-Valent Vaccine IM ONE (10:00)
[2017-08-03] MEDS ORDERED: Influenza Vaccine 60 mcg/0.5 mL SYR (4YR UP) IM ONE (10:00)
[2017-08-03] MEDS: diltiaZEM 180 mg/24 Hours CD Cap PO SCH (10:47)
[2017-08-03] MEDS: Pantoprazole 40 mg EC Tab PO SCH (10:48)
[2017-08-03] MEDS ORDERED: Lidocaine 4% (Laryng-O-Jet) Kit MM ONE ×2 (11:10→11:51)
[2017-08-03] MEDS ORDERED: Propofol 10 mg/ml Inj (20 ML) ONE (11:43)
[2017-08-03] MEDS ORDERED: Lidocaine 2% Inj (20ml) ONE (11:44)
--- NOTE | 2017-08-03 11:54 | CP.PCM.PN ---
Subjective - Date & Time of Evaluation Date of Evaluation: 08/03/17 Time of Evaluation: 11:49 - Subjective Subjective: PGY2 progress note for Dr. Kiser Pt seen and examined at bedside. No acute events overnight. Pt states that she is unable to sleep at night due to anxiety. denies having any CP, SOB, abd pain, N/v/D/C, F/c. 12 point ROS negative except for the above mentioned. Patient is seen walking around halls without difficulty. Objective - Vital Signs/Intake and Output Vital Signs (last 24 hours): Temp Pulse Resp BP Pulse Ox 98.4 F 79 20 157/79 H 95 08/03/17 08:57 08/03/17 08:57 08/03/17 08:57 08/03/17 08:57 08/03/17 08:57 Intake and Output: 08/03/17 08/03/17 06:59 18:59 Intake Total 920 Balance 920 - Medications Medications: Current Medications Albuterol Sulfate (Albuterol 0.083% Inhal Leatha (2.5 Mg/3 Ml) Ud) 2.5 mg INH RQ8 [facility] Last Admin: 08/03/17 07:46 Dose: 2.5 mg Alprazolam (Xanax) 1 mg PO BID [facility] Last Admin: 08/03/17 10:58 Dose: 1 mg Apixaban (Eliquis) 5 mg PO BID [facility] Last Admin: 08/03/17 10:47 Dose: 5 mg Digoxin (Lanoxin) 0.125 mg PO 1800 [facility] Diltiazem HCl (Cardizem Cd) 180 mg PO DAILY [facility] Last Admin: 08/03/17 10:47 Dose: 180 mg Duloxetine HCl (Cymbalta) 60 mg PO DAILY [facility] Last Admin: 08/03/17 10:50 Dose: 60 mg Famotidine (Pepcid) 20 mg PO DAILY [facility] Last Admin: 08/03/17 10:48 Dose: 20 mg Ferrous Sulfate (Feosol) 325 mg PO DAILY [facility] Last Admin: 08/03/17 10:48 Dose: 325 mg Isosorbide Mononitrate (Imdur Er) 30 mg PO DAILY [facility] Last Admin: 08/03/17 10:48 Dose: 30 mg Lisinopril (Zestril) 2.5 mg PO DAILY [facility] Last Admin: 08/03/17 10:49 Dose: 2.5 mg Meclizine HCl (Antivert) 12.5 mg PO DAILY [facility] Last Admin: 08/03/17 10:48 Dose: 12.5 mg Metoclopramide HCl (Reglan) 10 mg PO Q8H PRN PRN Reason: Nausea/Vomiting Mirtazapine (Remeron) 7.5 mg PO HS [facility] Last Admin: 08/02/17 21:06 Dose: 7.5 mg Mometasone Furoate (Asmanex Twisthaler 220 Mcg) 1 puff INH RBID [facility] Nicotine (Nicoderm Cq) 1 patch TD DAILY [facility] Last Admin: 08/03/17 10:49 Dose: 1 patch Pantoprazole Sodium (Protonix Ec Tab) 40 mg PO DAILY [facility] Last Admin: 08/03/17 10:48 Dose: 40 mg Rosuvastatin Calcium (Crestor) 2.5 mg PO HS [facility] - Labs Labs: 08/03/17 08:38 08/03/17 08:38 PT 13.3 SECONDS (9.7-12.2) H 08/02/17 22:35 INR 1.2 08/02/17 22:35 APTT 34 SECONDS (21-34) 08/02/17 22:35 - Constitutional Appears: Non-toxic, No Acute Distress - Head Exam Head Exam: ATRAUMATIC - ENT Exam ENT Exam: Mucous Membranes Moist - Respiratory Exam Respiratory Exam: Clear to Ausculation Bilateral. absent: Accessory Muscle Use , Rales, Rhonchi, Wheezes, Respiratory Distress - Cardiovascular Exam Cardiovascular Exam: REGULAR RHYTHM, +S1, +S2. absent: Gallop, Rubs, Murmur - GI/Abdominal Exam GI & Abdominal Exam: Soft, Normal Bowel Sounds. absent: Distended, Firm, Guarding, Rigid, Tenderness, Organomegaly - Extremities Exam Extremities Exam: absent: Pedal Edema, Tenderness - Neurological Exam Neurological Exam: Alert, Awake, Oriented x3 - Psychiatric Exam Psychiatric exam: Normal Affect, Normal Mood - Skin Skin Exam: Dry, Intact, Normal Color, Warm Assessment and Plan - Assessment and Plan (Free Text) Assessment: 76 year old female with past medical history of CAD s/p CABG is admitted for chest pain rule out ACS Chest pain troponin x 3 were negative Echo showed right atrial mass. Patient scheduled for MIGUELITO today with Dr. Mosqueda for further evaluation Continue Digoxin, Cardizem, Imdur. CAD s/p CABG Will get consent from pt to pbatin records of CABG procedure from [facility] HgbA1c, lipid panel and TSH all WNL Pt will need to be started on ACEI and statin Lightheadedness Carotid US negative Continue home medication Antivert LE DVT LE US negative Continue home med Eliquis hyponatremia resolved Prophylaxis Pepcid Continue Eliquis SCDs All rec and management per Dr. Kiser
--- NOTE | 2017-08-03 12:13 | CARD ---
APPROVED REPORT EKG Measurement Heart [id number] <Conclusion> Sinus rhythm with premature atrial complexes Otherwise normal ECG
--- NOTE | 2017-08-03 14:15 | CARD ---
APPROVED REPORT EXAM: Two-dimensional and M-mode echocardiogram with Doppler and color Doppler. Other Information Quality : GoodRhythm : INDICATION Chest Pain 2D DIMENSIONS IVSd1.1 (0.7-1.1cm)LVDd3.7 (3.9-5.9cm) LVOT Diameter1.9 (1.8-2.4cm)PWd0.8 (0.7-1.1cm) LVDs2.0 (2.5-4.0cm)FS (%) 45.6 % LVEF (%)77.7 (>50%) M-Mode DIMENSIONS Left Atrium (MM)2.92 (2.5-4.0cm)Aortic Root3.32 (2.2-3.7cm) Aortic Cusp Exc.1.68 (1.5-2.0cm) Aortic Valve AoV Peak Gmvehxih910.1cm/sAoV VTI63.5cmAO Peak GR.40mmHg LVOT Peak Codszdlg867.1cm/sLVOT VTI27.78cmAO Mean GR.21mmHg DAVID (VMAX)1.66qs8QVQ (VTI)1.21cm2 Mitral Valve MV E Gbzcuqyp19.9cm/sMV A Jmiutrjd032.1cm/sE/A ratio0.6 TDI E/Lateral E'0.0E/Medial E'0.0 Tricuspid Valve TR Peak Dzgcuxnk958pz/sTR Peak Gr.93kbUpZVQB75btKs LEFT VENTRICLE The left ventricle is normal size. There is normal left ventricular wall thickness. The left ventricular function is normal. The left ventricular ejection fraction is within the normal range. No regional wall motion abnormalities noted. Transmitral Doppler flow pattern is Grade I-abnormal relaxation pattern. There is no ventricular septal defect visualized. There is no left ventricular aneurysm. There is no mass noted in the left ventricle. RIGHT VENTRICLE The right ventricle is normal size. There is normal right ventricular wall thickness. The right ventricular systolic function is normal. ATRIA The left atrium size is normal. The right atrium size is normal. The interatrial septum is intact with no evidence for an atrial septal defect. AORTIC VALVE The aortic valve is mildly to moderately thickened. No aortic regurgitation is present. Calculated AV is 1.2 cm2 but valve opens adequately on short axis . Moderate calcification in LVOT There is no aortic valvular vegetation. MITRAL VALVE The mitral valve is normal in structure and function. There is no evidence of mitral valve prolapse. There is no mitral valve stenosis. There is no mitral valve regurgitation noted. TRICUSPID VALVE The tricuspid valve is normal in structure and function. There is mild tricuspid regurgitation. Right ventricular systolic pressure is estimated at less than 30 mmHg. There is no tricuspid valve prolapse or vegetation. There is no tricuspid valve stenosis. PULMONIC VALVE The pulmonary valve is normal in structure and function. There is no pulmonic valvular regurgitation. There is no pulmonic valvular stenosis. GREAT VESSELS The aortic root is normal in size. The ascending aorta is normal in size. The pulmonary artery is normal. The IVC is normal in size and collapses >50% with inspiration. PERICARDIAL EFFUSION The pericardium appears normal. There is no pleural effusion. <Conclusion> The left ventricular function is normal. The left ventricular ejection fraction is within the normal range. No regional wall motion abnormalities noted. Calculated AV is 1.2 cm2 but valve opens adequately on short axis . Moderate calcification in LVOT. could be cause for 3.2 m/sec velocity obtained near AV
[2017-08-03 17:51] VITALS: PULSE 70
[2017-08-03] MEDS ORDERED: Digoxin 125 mcg (0.125 mg) Tab PO SCH (18:00)
[2017-08-03] MEDS ORDERED: Mometasone 220 mcg/puff-14 puff Inh INH SCH (20:30)
--- NOTE | 2017-08-03 20:41 | CP.PCM.PN ---
Subjective - Date & Time of Evaluation Date of Evaluation: 08/03/17 Time of Evaluation: 20:38 - Subjective Subjective: Patient s/p MIGUELITO Normal EF No intracardiac mass or thrombus noted Prominent dumbell shaped interatrial septum No bubble cross over No further cardiac recommendations at this time Cardiac point of view patient cleared for discharge Objective - Vital Signs/Intake and Output Vital Signs (last 24 hours): Temp Pulse Resp BP Pulse Ox 98.3 F 65 18 118/65 96 08/03/17 15:00 08/03/17 16:00 08/03/17 15:00 08/03/17 15:00 08/03/17 15:00 - Medications Medications: Current Medications Albuterol Sulfate (Albuterol 0.083% Inhal Leatha (2.5 Mg/3 Ml) Ud) 2.5 mg INH RQ8 [facility] Last Admin: 08/03/17 16:44 Dose: 2.5 mg Alprazolam (Xanax) 1 mg PO BID [facility] Last Admin: 08/03/17 17:50 Dose: 1 mg Apixaban (Eliquis) 5 mg PO BID [facility] Last Admin: 08/03/17 17:50 Dose: 5 mg Digoxin (Lanoxin) 0.125 mg PO 1800 [facility] Last Admin: 08/03/17 17:50 Dose: 0.125 mg Diltiazem HCl (Cardizem Cd) 180 mg PO DAILY [facility] Last Admin: 08/03/17 10:47 Dose: 180 mg Duloxetine HCl (Cymbalta) 60 mg PO DAILY [facility] Last Admin: 08/03/17 10:50 Dose: 60 mg Famotidine (Pepcid) 20 mg PO DAILY [facility] Last Admin: 08/03/17 10:48 Dose: 20 mg Ferrous Sulfate (Feosol) 325 mg PO DAILY [facility] Last Admin: 08/03/17 10:48 Dose: 325 mg Isosorbide Mononitrate (Imdur Er) 30 mg PO DAILY [facility] Last Admin: 08/03/17 10:48 Dose: 30 mg Lisinopril (Zestril) 2.5 mg PO DAILY [facility] Last Admin: 08/03/17 10:49 Dose: 2.5 mg Meclizine HCl (Antivert) 12.5 mg PO DAILY [facility] Last Admin: 08/03/17 10:48 Dose: 12.5 mg Metoclopramide HCl (Reglan) 10 mg PO Q8H PRN PRN Reason: Nausea/Vomiting Mirtazapine (Remeron) 7.5 mg PO HS [facility] Last Admin: 08/02/17 21:06 Dose: 7.5 mg Mometasone Furoate (Asmanex Twisthaler 220 Mcg) 1 puff INH RBID [facility] Nicotine (Nicoderm Cq) 1 patch TD DAILY [facility] Last Admin: 08/03/17 10:49 Dose: 1 patch Pantoprazole Sodium (Protonix Ec Tab) 40 mg PO DAILY [facility] Last Admin: 08/03/17 10:48 Dose: 40 mg Rosuvastatin Calcium (Crestor) 2.5 mg PO HS [facility] - Labs Labs: 08/03/17 08:38 08/03/17 08:38 PT 13.3 SECONDS (9.7-12.2) H 08/02/17 22:35 INR 1.2 08/02/17 22:35 APTT 34 SECONDS (21-34) 08/02/17 22:35
[2017-08-03] MEDS ORDERED: Rosuvastatin Calcium 2.5 mg Tab PO SCH (22:00)
[2017-08-04 06:33] LABS: BASO % 0.4 % (0.0-2.0); EOS # 0.1 K/uL (0.0-0.7); EOS % 1.4 % (0.0-4.0); HEMOGLOBIN 12.6 g/dL (11.0-16.0); LYMPH # 2.6 K/uL (1.0-4.3); LYMPH % 40.9 % (20.0-40.0); MEAN CELL VOLUME 79.5 fL (81.0-99.0); MEAN CORPUSCULAR HEMOGLOBIN 26.7 pg (27.0-31.0); MEAN CORPUSCULAR HGB CONC 33.6 g/dL (33.0-37.0); MEAN PLATELET VOLUME 8.4 fL (7.2-11.7); MONO # 0.7 K/uL (0.0-0.8); MONO % 11.6 % (0.0-10.0); NEUT # 2.9 K/uL (1.8-7.0); NEUT % 45.7 % (50.0-75.0); RBC 4.71 Mil/uL (3.80-5.20); RED CELL DISTRIBUTION WIDTH 18.8 % (11.5-14.5); WHITE BLOOD COUNT 6.4 K/uL (4.8-10.8)
[2017-08-04] MEDS: Albuterol 0.083% Inhal Sol (2.5 mg/3 mL) UD INH SCH ×2 (08:01→16:14)
[2017-08-04 08:25] LABS: ALB/GLOB RATIO 1.3 (1.0-2.1); ALBUMIN 3.5 g/dL (3.5-5.0); ALT/SGPT 16 U/L (9-52); AST/SGOT 29 U/L (14-36); BLOOD UREA NITROGEN 9 mg/dL (7-17); GFR AFRICAN-AMERICAN > 60; GFR NON-AFRICAN AMERICAN > 60
[2017-08-04] MEDS: Pantoprazole 40 mg EC Tab PO SCH (10:07)
[2017-08-04] MEDS: diltiaZEM 180 mg/24 Hours CD Cap PO SCH (10:07)
--- NOTE | 2017-08-04 10:07 | CP.PCM.PN ---
Subjective - Date & Time of Evaluation Date of Evaluation: 08/04/17 Time of Evaluation: 10:02 - Subjective Subjective: PGY2 progress note for Dr. Kiser Pt seen and examined at bedside. No acute events overnight. Patient underwent MIGUELITO yesterday and tolerated procedure well. Denies having any CP, SOB, abd pain , N/V/D/C, F/C. 12 point ROS negative except for above mentioned. Objective - Vital Signs/Intake and Output Vital Signs (last 24 hours): Temp Pulse Resp BP Pulse Ox 98.5 F 73 18 125/56 L 95 08/03/17 23:30 08/04/17 03:56 08/03/17 23:30 08/03/17 23:30 08/03/17 23:30 Intake and Output: 08/04/17 08/04/17 06:59 18:59 Intake Total 420 Balance 420 - Medications Medications: Current Medications Albuterol Sulfate (Albuterol 0.083% Inhal Leatha (2.5 Mg/3 Ml) Ud) 2.5 mg INH RQ8 [facility] Last Admin: 08/04/17 08:01 Dose: 2.5 mg Alprazolam (Xanax) 1 mg PO BID [facility] Last Admin: 08/03/17 17:50 Dose: 1 mg Apixaban (Eliquis) 5 mg PO BID [facility] Last Admin: 08/03/17 17:50 Dose: 5 mg Digoxin (Lanoxin) 0.125 mg PO 1800 [facility] Last Admin: 08/03/17 17:50 Dose: 0.125 mg Diltiazem HCl (Cardizem Cd) 180 mg PO DAILY [facility] Last Admin: 08/03/17 10:47 Dose: 180 mg Duloxetine HCl (Cymbalta) 60 mg PO DAILY [facility] Last Admin: 08/03/17 10:50 Dose: 60 mg Famotidine (Pepcid) 20 mg PO DAILY [facility] Last Admin: 08/03/17 10:48 Dose: 20 mg Ferrous Sulfate (Feosol) 325 mg PO DAILY [facility] Last Admin: 08/03/17 10:48 Dose: 325 mg Isosorbide Mononitrate (Imdur Er) 30 mg PO DAILY [facility] Last Admin: 08/03/17 10:48 Dose: 30 mg Lisinopril (Zestril) 2.5 mg PO DAILY [facility] Last Admin: 08/03/17 10:49 Dose: 2.5 mg Meclizine HCl (Antivert) 12.5 mg PO DAILY [facility] Last Admin: 08/03/17 10:48 Dose: 12.5 mg Metoclopramide HCl (Reglan) 10 mg PO Q8H PRN PRN Reason: Nausea/Vomiting Mirtazapine (Remeron) 7.5 mg PO HS [facility] Last Admin: 08/03/17 21:45 Dose: 7.5 mg Mometasone Furoate (Asmanex Twisthaler 220 Mcg) 1 puff INH RBID [facility] Last Admin: 08/04/17 08:02 Dose: 1 puff Nicotine (Nicoderm Cq) 1 patch TD DAILY [facility] Last Admin: 08/03/17 10:49 Dose: 1 patch Pantoprazole Sodium (Protonix Ec Tab) 40 mg PO DAILY [facility] Last Admin: 08/03/17 10:48 Dose: 40 mg Rosuvastatin Calcium (Crestor) 2.5 mg PO HS [facility] Last Admin: 08/03/17 21:45 Dose: 2.5 mg - Labs Labs: 08/04/17 06:23 08/04/17 06:23 PT 13.3 SECONDS (9.7-12.2) H 08/02/17 22:35 INR 1.2 08/02/17 22:35 APTT 34 SECONDS (21-34) 08/02/17 22:35 - Constitutional Appears: Non-toxic, No Acute Distress - Head Exam Head Exam: ATRAUMATIC - ENT Exam ENT Exam: Mucous Membranes Moist - Respiratory Exam Respiratory Exam: Clear to Ausculation Bilateral. absent: Accessory Muscle Use , Rales, Rhonchi, Wheezes, Respiratory Distress - Cardiovascular Exam Cardiovascular Exam: REGULAR RHYTHM, +S1, +S2. absent: Gallop, Rubs, Murmur - GI/Abdominal Exam GI & Abdominal Exam: Soft, Normal Bowel Sounds. absent: Distended, Firm, Guarding, Rigid, Tenderness, Organomegaly - Neurological Exam Neurological Exam: Alert, Awake, Oriented x3 - Psychiatric Exam Psychiatric exam: Normal Affect, Normal Mood - Skin Skin Exam: Dry, Intact, Normal Color, Warm Assessment and Plan - Assessment and Plan (Free Text) Assessment: 76 year old female with past medical history of CAD s/p CABG is admitted for chest pain rule out ACS Chest pain MIGUELITO performed yesterday by Dr. Mosqueda showed prominent dumbell shaped interarterial septum, no mass, no bubble crossover. Continue Digoxin, Cardizem, Imdur. Per cardiology, no further cardiac workup required at this time CAD s/p CABG Records requested from [facility] for CABG procedure HgbA1c, lipid panel and TSH all WNL Continue Angel and ARB Lightheadedness Carotid US negative Continue home medication Antivert LE DVT LE US negative Continue home med Eliquis Headache Pt developed headache today Will get CT of head Prophylaxis Pepcid Continue Eliquis SCDs All rec and management per Dr. Kiser Patient is safe for discharge home per Dr. Kiser Patient is asked to follow up with PMD upon discharge Patient is asked to follow up with [employer] upon discharge. Patient is to continue home medications as prescribed. Patient is discharged home the following new medications: Crestor 2.5 mg po one tab at bed time #30 tabs; Lisinopril 2.5 mg po 1 tab daily #30 tabs.
[2017-08-04 13:36] VITALS: PULSE 75
--- NOTE | 2017-08-04 13:42 | CT ---
PROCEDURE: CT HEAD WITHOUT CONTRAST. HISTORY: headache COMPARISON: None available. TECHNIQUE: Axial computed tomography images were obtained through the head/brain without intravenous contrast. Coronal and sagittal reconstructed images. Radiation dose: Total exam DLP = 776.43 mGy-cm. This CT exam was performed using one or more of the following dose reduction techniques: Automated exposure control, adjustment of the mA and/or kV according to patient size, and/or use of iterative reconstruction technique. FINDINGS: HEMORRHAGE: No intracranial hemorrhage. BRAIN: No mass effect or edema. Cortical and cerebellar atrophy, periventricular small vessel disease VENTRICLES: Unremarkable. No hydrocephalus. CALVARIUM: Unremarkable. PARANASAL SINUSES: Unremarkable as visualized. No significant inflammatory changes. MASTOID AIR CELLS: Unremarkable as visualized. No inflammatory changes. OTHER FINDINGS: None. IMPRESSION: No acute intracranial abnormalities. No significant findings to account for the clinical presentation.
[2017-08-04 14:31] VITALS: BP 132/66; RESP 20; TEMP 98; O2SAT 99
[2017-08-04] MEDS ORDERED: Influenza Vaccine 60 mcg/0.5 mL SYR (4YR UP) IM ONE (16:15)
== END 2017-08-04 17:21 | disposition home or self-care (01) | DRG 303 ==
LOC: C.ER 11:02 → C.9E 14:50 → C.6T 17:39
PROVIDERS: ADMIT Internal Medicine Pulmonary Disease; ATTEND Internal Medicine Pulmonary Disease
PROC: 3E0234Z Introduction of Serum, Toxoid and Vaccine into Muscle, Percutaneous Approach (ICD-10-PCS; principal; 2017-08-02)
DX: I25.110 Atherosclerotic heart disease of native coronary artery with unstable angina pectoris (principal); E87.1 Hypo-osmolality and hyponatremia; Z68.1 Body mass index [BMI] 19.9 or less, adult; F41.9 Anxiety disorder, unspecified; I10 Essential (primary) hypertension; Z72.0 Tobacco use; Z79.01 Long term (current) use of anticoagulants; Z95.1 Presence of aortocoronary bypass graft; Z23 Encounter for immunization

== ENCOUNTER 2017-08-08 20:12 | Inpatient (IN) | payer MEDICARE, BC ==
[2017-08-08] MEDS ORDERED: Nitroglycerin 2% Ointment Foilpak UD TOP STA (20:52)
[2017-08-08] MEDS ORDERED: Nitroglycerin 2% Ointment Foilpak UD TOP ONE (21:03)
--- NOTE | 2017-08-08 21:09 | C.PDOC ---
History Of Present Illness 76 year old female with a Hx of CAD and bypass surgery presents to the ER via EMS from home for a complaint of severe chest pain. Patient reports the pain was to the anterior chest wall and notes it was more severe at home. Denies nausea, vomiting, or shortness of breath. Chief Complaint (Nursing): Chest Pain History Per: Patient History/Exam Limitations: no limitations Onset/Duration Of Symptoms: Hrs Current Symptoms Are (Timing): Better Associated Symptoms: denies: Nausea, Dyspnea, Diaphoresis, Syncope Modifying Factors: None Exacerbating Factors: None Alleviating Factors: None Recent travel outside of the [place]: No Past Medical History Reviewed: Historical Data, Nursing Documentation, Vital Signs Vital Signs: Last Vital Signs Temp 99.1 F 08/08/17 20:21 Pulse 74 08/08/17 20:21 Resp 20 08/08/17 20:21 BP 129/53 L 08/08/17 20:21 Pulse Ox 99 08/09/17 01:05 - Medical History PMH: Anemia, Anxiety, COPD, HTN Surgical History: CABG - [facility] INTRODUCTION OF SERUM/TOX/VACCINE INTO MUSCLE, PERC APPROACH (08/01/17) Family History: States: Unknown Family Hx - Social History Hx Alcohol Use: Yes Hx Substance Use: No - Immunization History Hx Tetanus Toxoid Vaccination: No Hx Influenza Vaccination: No Hx Pneumococcal Vaccination: No Review Of Systems Constitutional: Negative for: Fever, Chills Cardiovascular: Positive for: Chest Pain. Negative for: Palpitations Respiratory: Negative for: Shortness of Breath Gastrointestinal: Negative for: Nausea, Vomiting Musculoskeletal: Negative for: Neck Pain Physical Exam - Physical Exam Appears: Non-toxic, No Acute Distress Skin: Normal Color, Warm, Dry Head: Atraumatic, Normacephalic Eye(s): bilateral: Normal Inspection Oral Mucosa: Moist Neck: Normal, Supple Chest: Symmetrical, No Tenderness Cardiovascular: Rhythm Regular Respiratory: Normal Breath Sounds, No Rales, No Rhonchi, No Wheezing Gastrointestinal/Abdominal: Soft, No Tenderness Neurological/Psych: Oriented x3, Normal Speech, Other (No focal deficits) ED Course And Treatment - Laboratory Results Result Diagrams: 08/08/17 21:01 08/08/17 21:01 ECG: Interpreted By Me, Viewed By Me ECG Rhythm: Sinus Rhythm ECG Interpretation: No Acute Changes Interpretation Of ECG: NSR, no acute changes. Rate From EC O2 Sat by Pulse Oximetry: 99 (Room air) Pulse Ox Interpretation: Normal Progress Note: EKG, blood work, or CXR. Nitro-bid applied. Disposition Discussed With : Luanne Kiser Doctor Will See Patient In The: Hospital Counseled Patient/Family Regarding: Diagnosis - Disposition Disposition: HOSPITALIZED Disposition Time: 01:04 Condition: STABLE Forms: [facility] (Micronesian) - POA Present On Arrival: None - Clinical Impression Clinical Impression: Chest pain, Pneumonia - Scribe Statement The provider has reviewed the documentation as recorded by the Scribbashir Franco All medical record entries made by the Marisabelibbashir were at my direction and personally dictated by me. I have reviewed the chart and agree that the record accurately reflects my personal performance of the history, physical exam, medical decision making, and the department course for this patient. I have also personally directed, reviewed, and agree with the discharge instructions and disposition.
[2017-08-08 21:11] LABS: BASO # 0.1 K/uL (0.0-0.2); BASO % 0.8 % (0.0-2.0); EOS # 0.1 K/uL (0.0-0.7); EOS % 1.4 % (0.0-4.0); HEMOGLOBIN 12.5 g/dL (11.0-16.0); LYMPH # 2.5 K/uL (1.0-4.3); LYMPH % 34.9 % (20.0-40.0); MEAN CELL VOLUME 80.2 fL (81.0-99.0); MEAN CORPUSCULAR HEMOGLOBIN 26.6 pg (27.0-31.0); MEAN CORPUSCULAR HGB CONC 33.2 g/dL (33.0-37.0); MEAN PLATELET VOLUME 8.1 fL (7.2-11.7); MONO # 0.7 K/uL (0.0-0.8); MONO % 9.3 % (0.0-10.0); NEUT # 3.9 K/uL (1.8-7.0); NEUT % 53.6 % (50.0-75.0); NRBC % 0.1 % (0.0-2.0); RBC 4.68 Mil/uL (3.80-5.20); RED CELL DISTRIBUTION WIDTH 19.2 % (11.5-14.5); WHITE BLOOD COUNT 7.2 K/uL (4.8-10.8)
[2017-08-08 21:23] LABS: ALB/GLOB RATIO 1.3 (1.0-2.1); ALBUMIN 3.6 g/dL (3.5-5.0); ALT/SGPT 24 U/L (9-52); AST/SGOT 28 U/L (14-36); BLOOD UREA NITROGEN 10 mg/dL (7-17); CALCIUM 8.6 mg/dl (8.6-10.4); GFR AFRICAN-AMERICAN > 60; GFR NON-AFRICAN AMERICAN > 60
[2017-08-08] MEDS ORDERED: Iodixanol 320 MG/ML 100 ML BOTTLE IV ONE (23:11)
--- NOTE | 2017-08-09 00:05 | CT ---
EXAM: CT Angiography Chest With Intravenous Contrast CLINICAL HISTORY: 76 years old, female; Pain; Chest pressure; Additional info: Chest pain/ elevated d-dimer TECHNIQUE: Axial computed tomographic angiography images of the chest with intravenous contrast using pulmonary embolism protocol. All CT scans at this facility use one or more dose reduction techniques, viz.: automated exposure control; ma/kV adjustment per patient size (including targeted exams where dose is matched to indication; i.e. head); or iterative reconstruction technique. MIP reconstructed images were created and reviewed. Coronal and sagittal reformatted images were created and reviewed. CONTRAST: 100 mL of VISIPAQUE 320 administered intravenously. COMPARISON: No relevant prior studies available. FINDINGS: Pulmonary arteries: Unremarkable. No pulmonary embolism. Aorta: Atherosclerotic vascular disease. No thoracic aortic aneurysm. Lungs: Moderate centrilobular emphysema. Small area of consolidation with air bronchograms posteromedially left lower lobe. Pleural space: Calcified pleural plaque right diaphragm. Additional bilateral calcified pleural plaques noted predominantly in the lower lung zones. No significant effusion. No pneumothorax. Heart: Prosthetic aortic valve. Bones/joints: Median sternotomy wires. Osteoporosis. Kyphosis. Vertebral augmentation at L1. No acute fracture. No dislocation. Soft tissues: Unremarkable. Lymph nodes: Unremarkable. No enlarged lymph nodes. IMPRESSION: 1. No acute pulmonary embolism. 2. Moderate centrilobular emphysema. 3. Asbestos related pleural disease. 4. Small focus of consolidative opacity posteromedially in left lower lobe. 5. Remainder of findings as above.
[2017-08-09 09:00] LABS: BASO % 0.5 % (0.0-2.0); EOS # 0.1 K/uL (0.0-0.7); EOS % 1.9 % (0.0-4.0); HEMOGLOBIN 13.6 g/dL (11.0-16.0); LYMPH # 3.3 K/uL (1.0-4.3); LYMPH % 46.3 % (20.0-40.0); MEAN CELL VOLUME 80.7 fL (81.0-99.0); MEAN CORPUSCULAR HEMOGLOBIN 26.6 pg (27.0-31.0); MEAN PLATELET VOLUME 8.5 fL (7.2-11.7); MONO # 0.8 K/uL (0.0-0.8); MONO % 10.6 % (0.0-10.0); NEUT # 2.9 K/uL (1.8-7.0); NEUT % 40.7 % (50.0-75.0); RBC 5.11 Mil/uL (3.80-5.20); RED CELL DISTRIBUTION WIDTH 19.8 % (11.5-14.5); WHITE BLOOD COUNT 7.2 K/uL (4.8-10.8)
--- NOTE | 2017-08-09 09:14 | RAD ---
PROCEDURE: CHEST RADIOGRAPH, 1 VIEW HISTORY: chest pain COMPARISON: Chest radiograph dated 08/01/2017. FINDINGS: LUNGS: Stable chronic prominence of the bilateral interstitial markings. PLEURA: Bilateral calcified pleural plaques. No pneumothorax or pleural fluid seen. CARDIOVASCULAR: Prior sternotomy with sternal wires and surgical clips redemonstrated. Atherosclerotic aortic calcifications. Cardiomediastinal silhouette within normal limits. OSSEOUS STRUCTURES: Prior right humeral head repair. Unchanged. VISUALIZED UPPER ABDOMEN: Normal. OTHER FINDINGS: None. IMPRESSION: Stable chronic prominence the bilateral interstitial markings. No focal consolidation or pleural effusion.
[2017-08-09 09:16] LABS: ALB/GLOB RATIO 1.3 (1.0-2.1); ALBUMIN 3.9 g/dL (3.5-5.0); ALT/SGPT 19 U/L (9-52); AST/SGOT 29 U/L (14-36); BLOOD UREA NITROGEN 6 mg/dL (7-17); CALCIUM 9.3 mg/dl (8.6-10.4); GFR AFRICAN-AMERICAN > 60; GFR NON-AFRICAN AMERICAN > 60; MAGNESIUM 1.7 mg/dL (1.6-2.3)
[2017-08-09 09:23] LABS: CK-MB 0.86 ng/mL (0.0-3.38)
--- NOTE | 2017-08-09 09:33 | CP.PCM.PN ---
Subjective - Date & Time of Evaluation Date of Evaluation: 08/09/17 Time of Evaluation: 07:00 - Subjective Subjective: PGY [address] Kiser: Patient was seen and examined at bedside this morning. Patient stated she came to the ER yesterday because she was having chest pain. She stated her nerves have been high recently and she was worried she was having a heart attack. On exam this morning she stated that her chest pain has resolved. She denied headaches, changes in vision, SOB, palpitations, abdominal pain, N/V, diaphoresis, numbness or tingling. Patient is able to ambulate on her own and has been tolerating her meals. Patient would like us to call her daughter Unique and let her know that she is in the hospital. Objective - Vital Signs/Intake and Output Vital Signs (last 24 hours): Temp Pulse Resp BP Pulse Ox 98.1 F 64 18 149/66 95 08/09/17 07:16 08/09/17 07:16 08/09/17 07:16 08/09/17 07:16 08/09/17 07:16 - Medications Medications: Current Medications Albuterol Sulfate (Albuterol 0.083% Inhal Leatha (2.5 Mg/3 Ml) Ud) 2.5 mg INH RTID ROBERT Alprazolam (Xanax) 1 mg PO BID ROBERT Apixaban (Eliquis) 5 mg PO BID ROBERT Digoxin (Lanoxin) 0.125 mg PO DAILY@1800 ROBERT Diltiazem HCl (Cardizem Cd) 180 mg PO DAILY ROBERT Duloxetine HCl (Cymbalta) 60 mg PO DAILY ROBERT Ferrous Sulfate (Feosol) 325 mg PO DAILY ROBERT Isosorbide Mononitrate (Imdur Er) 30 mg PO DAILY ROBERT Lisinopril (Zestril) 2.5 mg PO DAILY ROBERT Mirtazapine (Remeron) 7.5 mg PO HS ROBERT Mometasone Furoate (Asmanex Twisthaler 220 Mcg) 1 puff INH RBID ROBERT Pantoprazole Sodium (Protonix Ec Tab) 40 mg PO DAILY ROBERT Rosuvastatin Calcium (Crestor) 2.5 mg PO HS ROBERT - Labs Labs: 08/09/17 08:52 08/09/17 08:52 - Constitutional Appears: Non-toxic, No Acute Distress - Head Exam Head Exam: ATRAUMATIC, NORMAL INSPECTION - Eye Exam Eye Exam: EOMI, Normal appearance - ENT Exam ENT Exam: Mucous Membranes Moist - Respiratory Exam Respiratory Exam: Clear to Ausculation Bilateral, NORMAL BREATHING PATTERN. absent: Respiratory Distress - Cardiovascular Exam Cardiovascular Exam: REGULAR RHYTHM, +S1, +S2 - GI/Abdominal Exam GI & Abdominal Exam: Soft, Normal Bowel Sounds. absent: Distended, Firm, Guarding, Tenderness - Extremities Exam Extremities Exam: Normal Inspection - Back Exam Back Exam: NORMAL INSPECTION. absent: paraspinal tenderness - Neurological Exam Neurological Exam: Alert, Awake, CN II-XII Intact, Oriented x3 Neuro motor strength exam: Left Upper Extremity: 5, Right Upper Extremity: 5, Left Lower Extremity: 5, Right Lower Extremity: 5 - Psychiatric Exam Psychiatric exam: Normal Affect, Normal Mood Assessment and Plan - Assessment and Plan (Free Text) Assessment: 76 year old female with past medical history of CAD s/p CABG is admitted for chest pain rule out ACS Chest pain - likely secondary to anxiety ROMIS negative x 3 EKG no changes from pervious Ceest pain has resolved MIGUELITO performed on last admisison by Dr. Mosqueda showed prominent dumbell shaped interarterial septum, no mass, no bubble crossover. Continue Digoxin, Cardizem, Imdur. Per cardiology, no further cardiac workup required at this time Anxiety Psychiatry consulted, Dr. Solis, help appreciated start Seroqul 25mg PO BID Continue Xanax 1mg PO BID Dementia Patient is to be evaluated for dementia outpatient (r/o Alzheimers) MMSE 22 CAD s/p CABG Records requested from [facility] for CABG procedure HgbA1c, lipid panel and TSH all WNL Continue Angel and ARB Lightheadedness Carotid US negative Continue home medication Antivert LE DVT LE US negative Continue home med Eliquis Headache Pt developed headache today Will get CT of head Prophylaxis Pepcid Continue Eliquis SCDs Patient is stable for discharge per Dr. Kiser. Patient is to follow up with her primary care and request neurology referral for dementia workup. Patient ot he resume all of her home medications and in addiction start a new medication: Seroquel 25mg by mouth twice a day. Prescription was sent electronically to the patient's preferred pharmacy. Patient is to return to the emergency room if symptoms resume. All instructions explained to the patient and her daughter Unique and they agree. Patient stable for DC when she has a ride home by daughter, Unique. Questionable hx of dementia so unsafe to send patient home alone. All management per Dr. Kiser.
[2017-08-09] MEDS ORDERED: diltiaZEM 180 mg/24 Hours CD Cap PO SCH (10:00)
[2017-08-09] MEDS ORDERED: Pantoprazole 40 mg EC Tab PO SCH (10:00)
--- NOTE | 2017-08-09 10:28 | PCM.PSYCH ---
Initial Psychiatric Evaluation - Initial Psychiatric Evaluation Type of Admission: Voluntary Legal Status: Capacity Chief Complaint (in patient's own words): "I feel anxious" History of Present Illness and Precipitating Events: Psych consult: Anxiety The pt is seen, chart reviewed, case discussed with staff. Patient is a 76 year old female. She is single and lives in a two family home with her daughter/son-in-law/grandchild. Patient states she has a history of anxiety and worries a lot. Discussed with patient the issues of an individual her age taking a benzodiazepine. She denies s/i, h/i, paranoia, hallucinations, or delusions. A MMSE exam was performed and she scored a 22. Patients poor vision was a barrier to some of the tasks during the MMSE Patient appears calm and not anxious at this moment. She denies any prior hospitalizations due to psychiatric issues. Denies alcohol, drugs, tobacco. PMH: Denies Past Psych hx: anxiety Current Medications: Active Medications Generic Name Dose Route Start Last Admin Trade Name Freq PRN Reason Stop Dose Admin Albuterol Sulfate 2.5 mg 08/09/17 10:00 Albuterol 0.083% Inhal Leatha (2.5 Mg/3 Ml) Ud INH RTID ROBERT Apixaban 5 mg 08/09/17 10:00 08/09/17 10:16 Eliquis PO 5 mg BID ROBERT Administration Digoxin 0.125 mg 08/09/17 18:00 Lanoxin PO DAILY@1800 ROBERT Diltiazem HCl 180 mg 08/09/17 10:00 08/09/17 10:16 Cardizem Cd PO 180 mg DAILY ROBERT Administration Duloxetine HCl 60 mg 08/09/17 10:00 08/09/17 10:17 Cymbalta PO 60 mg DAILY ROBERT Administration Ferrous Sulfate 325 mg 08/09/17 10:00 08/09/17 10:16 Feosol PO 325 mg DAILY ROBERT Administration Isosorbide Mononitrate 30 mg 08/09/17 10:00 08/09/17 10:16 Imdur Er PO 30 mg DAILY ROBERT Administration Lisinopril 2.5 mg 08/09/17 10:00 08/09/17 10:18 Zestril PO 2.5 mg DAILY ROBERT Administration Lorazepam 0.5 mg 08/09/17 10:13 Ativan PO Q6 PRN Anxiety Mirtazapine 7.5 mg 08/09/17 22:00 Remeron PO HS [facility] Mometasone Furoate 1 puff 08/09/17 20:00 Asmanex Twisthaler 220 Mcg INH RBID ROBERT Pantoprazole Sodium 40 mg 08/09/17 10:00 08/09/17 10:16 Protonix Ec Tab PO 40 mg DAILY ROBERT Administration Rosuvastatin Calcium 2.5 mg 08/09/17 22:00 Crestor PO HS [facility] Past Psychiatric History - Past Psychiatric History Previous Treatment History: None Pertinent Medical Hx (Current Medical&Sleep Prob, Allergies): Allergies Allergy/AdvReac Type Severity Reaction Status Date / Time Penicillins Allergy Verified 08/08/17 20:24 Apixaban [Eliquis] 1 tab PO BID 08/01/17 DULoxetine [Cymbalta] 1 cap PO DAILY 08/01/17 Digoxin 0.125 mg PO DAILY 08/01/17 Diltiazem HCl [Diltiazem ER] 1 tab PO DAILY 08/01/17 Feosol 325 mg PO DAILY 08/01/17 Flovent Hfa 2 puff INH BID 08/01/17 Isosorbide Mononitrate [Isosorbide Mononitrate ER] 1 tab PO DAILY 08/01/17 Meclizine [Antivert] 1 tab PO DAILY 08/01/17 Mirtazapine [Remeron] 7.5 mg PO HS 08/01/17 Pantoprazole [Protonix EC Tab] 1 tab PO DAILY 08/01/17 ALPRAZolam [Xanax] 1 mg PO BID 08/02/17 Albuterol Sulfate 1 inh INH TID 08/02/17 Metoclopramide [Reglan] 10 mg PO Q8H PRN 08/02/17 Lisinopril [Zestril] 2.5 mg PO DAILY #30 tab 08/04/17 Rosuvastatin Calcium 2.5 [Crestor] 2.5 mg PO HS #30 tab 08/04/17 Review of Systems - Review of Systems All systems: reviewed and no additional remarkable complaints except - Psychiatric Psychiatric: Anxiety, Irritability. absent: Auditory Hallucinations, Depression , Suicidal Ideation Mental Status Examination - Personal Presentation Personal Presentation: Looks stated age - Affect Affect: Constricted - Motor Activity Motor Activity: Calm - Reliability in Providing Information Reliability in Providing Information: Poor, due to cognitve impairment - Speech Speech: Organized - Mood Mood: Anxious - Formal Thought Process Formal Thought Process: No Impairment - Obsessions/Compulsions Obsessions: No Compulsions: No - Cognitive Functions Orientation: Person, Place, Time Sensorium: Alert Attention/Concentration: Easily distracted Abstract Thinking: [place] Memory: Recent imparied as evidence by:Inability to complete 3/3 object recall, Remote impaired as evidenced by: Inability to recall sig life events, Remote impaired as evidenced by: Inability to recall historical events - Risk Risk: Diminished functioning - Limitations Limitations: Living alone DSM 5 DX - DSM 5 DSM 5 Diagnosis: Anxiety disorder NOS Rule out Alzheimer's dementia - Recommended/Plan of Treatment Treatment Recommendations and Plan of Treatment: Anxiety disorder NOS Rule out Alzheimer's dementia Start Seroquel 50 mg by mouth twice a day Patient psychiatrically stable and clear for discharge
[2017-08-09] MEDS: Albuterol 0.083% Inhal Sol (2.5 mg/3 mL) UD INH SCH ×2 (10:29→13:29)
--- NOTE | 2017-08-09 16:05 | CARD ---
APPROVED REPORT EKG Measurement Heart [id number] MS [id number] [id number] <Conclusion> Normal sinus rhythm Rightward axis Borderline ECG
[2017-08-09 17:07] VITALS: BP 118/57; PULSE 70; RESP 20; TEMP 97.6; O2SAT 97
[2017-08-09 17:30] VITALS: PULSE 76
[2017-08-09] MEDS ORDERED: Digoxin 125 mcg (0.125 mg) Tab PO SCH (18:00)
[2017-08-09] MEDS ORDERED: Mometasone 220 mcg/puff-14 puff Inh INH SCH (20:00)
[2017-08-09] MEDS ORDERED: Rosuvastatin Calcium 2.5 mg Tab PO SCH (22:00)
== END 2017-08-09 19:35 | disposition home or self-care (01) | DRG 880 ==
LOC: C.ER 20:12 → C.9E 08-09 01:54 → C.5S 08-09 06:44
PROVIDERS: ADMIT Internal Medicine Pulmonary Disease; ATTEND Internal Medicine Pulmonary Disease
DX: F41.9 Anxiety disorder, unspecified (principal); J44.9 Chronic obstructive pulmonary disease, unspecified; I10 Essential (primary) hypertension; I25.10 Atherosclerotic heart disease of native coronary artery without angina pectoris; Z95.1 Presence of aortocoronary bypass graft; R41.0 Disorientation, unspecified; T43.595A Adverse effect of other antipsychotics and neuroleptics, initial encounter; R42 Dizziness and giddiness; R51 Headache